=== PATIENT | female | born 1965 | race Two or more races ===

== ENCOUNTER 2020-08-17 15:55 | Emergency (ER) | payer OTHER ==
[~2020-08-17] VITALS: Ht 157.5 cm; Wt 55.8 kg
[~2020-08-17 15:55] MED LIST: PROVENTIL HFA6.7 GM
[2020-08-17] MEDS ORDERED: BUTALBIT-ACETA1 EACH PO (19:29)
[2020-08-17] MEDS ORDERED: KETO10TA2 PO (19:29)
== END 2020-08-17 19:37 | disposition home or self-care (01) ==
LOC: ER 15:55
DX: R51.9 Headache, unspecified (principal); Z11.52 Encounter for screening for COVID-19
CPT/HCPCS: 70545

== ENCOUNTER → 2020-12-29 12:07 | Outpatient (CLI) | payer OTHER ==
[~2020-12-29 12:07] MED LIST changes: +BUTALBIT-ACETA1 EACH PO; +KETO10TA2 PO
== END | disposition home or self-care (01) ==
LOC: LAB 12:07
PROVIDERS: ATTEND Radiology Diagnostic Radiology
DX: R13.19 Other dysphagia (principal)

== ENCOUNTER 2021-01-17 08:57 | Outpatient (CLI) | payer OTHER | END 2021-01-17 09:05 | disposition home or self-care (01) | LOC: RX STUDY 08:57 | DX: R13.19 Other dysphagia (principal); M40.40 Postural lordosis, site unspecified ==

== ENCOUNTER 2021-01-18 10:14 | Outpatient (CLI) | payer OTHER | END 2021-01-18 10:17 | disposition home or self-care (01) | LOC: TOM 10:14 | PROVIDERS: ATTEND Otolaryngology | DX: R22.1 Localized swelling, mass and lump, neck (principal); R13.19 Other dysphagia ==

== ENCOUNTER → 2021-06-15 | Emergency (ER) | payer OTHER ==
[~2021-06-15] VITALS: Ht 157.5 cm; Wt 52.2 kg
[~2021-06-15] MED LIST changes: +DICLOFENAC SODI75 MG PO
== END | disposition home or self-care (01) ==
LOC: ER 20:26
DX: M12.542 Traumatic arthropathy, left hand (principal); W19.XXXA Unspecified fall, initial encounter; Y92.89 Other specified places as the place of occurrence of the external cause

== ENCOUNTER 2022-07-07 18:56 | Emergency (ER) | payer OTHER ==
[~2022-07-07] VITALS: Ht 157.5 cm; Wt 54.4 kg
== END 2022-07-07 23:39 | disposition home or self-care (01) ==
LOC: ER 18:56
DX: R00.2 Palpitations (principal); Z88.8 Allergy status to other drugs, medicaments and biological substances